=== PATIENT | male | born 1975 | race Caucasian/White ===

== ENCOUNTER 2017-07-31 06:33 | Emergency (ER) | payer MEDICAID, OTHER ==
[~2017-07-31] VITALS: Ht 5787.1 cm; Wt 81.0 kg
[~2017-07-31 06:33] MED LIST: DICL50TA8 PO; HYDR-569 PO; NAPR-1154 PO
[2017-07-31] MEDS ORDERED: KETO10TA2 PO (08:23)
[2017-07-31] MEDS ORDERED: ketorolac trometh inj. 60 MG/2 ML VIAL IM ONE (08:25)
[2017-07-31 09:03] VITALS: BP 138/80
== END 2017-07-31 09:05 | disposition home or self-care (01) ==
LOC: ER 06:34
DX: M25.561 Pain in right knee (principal); Z98.890 Other specified postprocedural states; Z88.2 Allergy status to sulfonamides; Z88.8 Allergy status to other drugs, medicaments and biological substances
CPT/HCPCS: 73564; 96372; 99284; A6449; J1885

== ENCOUNTER 2017-08-04 22:42 | Emergency (ER) | payer MEDICAID ==
[~2017-08-04] VITALS: Ht 175.3 cm; Wt 82.0 kg
[~2017-08-04 22:42] MED LIST changes: +KETO10TA2 PO
[2017-08-04 22:46] VITALS: BP 134/83
[2017-08-05] MEDS ORDERED: ONDA4TAB9 PO (08:31)
[2017-08-05] MEDS ORDERED: HYDR-3965 PO ×2 (08:31→17:26)
[2017-08-05] MEDS ORDERED: DICL50TA8 PO (17:26)
[2017-08-06] MEDS ORDERED: NAPR-56 PO (13:33)
[2017-08-06] MEDS ORDERED: FAMO20TA8 PO (13:33)
== END 2017-08-05 03:49 | disposition left against medical advice (07) ==
LOC: ER 22:43
DX: M25.561 Pain in right knee (principal); Z53.21 Procedure and treatment not carried out due to patient leaving prior to being seen by health care provider

== ENCOUNTER 2017-08-05 06:27 | Inpatient (IN) | payer MEDICAID ==
[~2017-08-05] VITALS: Ht 175.3 cm; Wt 82.0 kg
[2017-08-05] MEDS ORDERED: BUPIVAcaine/PF 2.5 mg/ml (0.25%) 30ml vial IJ ONE (08:05)
[2017-08-05] MEDS ORDERED: ketorolac trometh inj. 60 MG/2 ML VIAL IM ONE (08:20)
[2017-08-05] MEDS ORDERED: ONDA4TAB9 PO (08:31)
[2017-08-05] MEDS ORDERED: HYDR-3965 PO ×2 (08:31→17:26)
[2017-08-05 09:50] LABS: GLUCOSE,SYNOVIAL FLUID 89 MG/DL; TOTAL PROTEIN,SYNOVIAL FLUID 5.1 GM/DL
[2017-08-05 10:16] LABS: APPEARANCE,SYNOVIAL FLUID CLOUDY; COLOR,SYNOVIAL FLUID YELLOW; LYMPHOCYTES,SYNOVIAL FLUID 1 % (0-75); NEUTROPHILS,SYNOVIAL FLUID 88 % (0-25); SYN RBC 390 /CU MM (0); SYN WBC 15300 /CU MM (0-200)
[2017-08-05 10:17] LABS: MONOCYTES,SYNOVIAL FLUID 11 % (0-0); SYNOVIAL FLUID CRYSTALS QT NO CRYSTALS SEEN
[2017-08-05] MEDS ORDERED: vancomycin/NS 1 GM ADD-VANTAGE 250 ML IV ONE (11:30)
[2017-08-05] MEDS ORDERED: piperacillin/tazo 3.375gm/50ml 50 ML IV ONE (11:30)
[2017-08-05 11:39] LABS: BASOPHILS % (AUTO) 0.3 % (0-1); EOSINOPHILS # (AUTO) 0.3 X10'3 (0-0.9); EOSINOPHILS % (AUTO) 2.8 % (0-6); HEMATOCRIT 38.9 % (42.0-52.0); HEMOGLOBIN 13.2 g/dl (14.0-17.9); LYMPHOCYTES # (AUTO) 1.5 X10'3 (1.1-4.8); LYMPHOCYTES % (AUTO) 12.1 % (21-51); MEAN CORPUSCULAR HEMOGLOBIN 29.3 PG (27.0-31.0); MEAN CORPUSCULAR HGB CONC 33.9 % (33.0-36.5); MEAN CORPUSCULAR VOLUME 86.6 FL (78-98); MEAN PLATELET VOLUME 7.7 FL (7.4-10.4); MONOCYTES % (AUTO) 8.6 % (2-12); NEUTROPHILS # (AUTO) 9.2 X10'3 (1.8-7.7); NEUTROPHILS % (AUTO) 76.2 % (42-75); PLATELET COUNT 304 X10'3 (140-440); RED BLOOD COUNT 4.49 X10'6 (4.70-6.10); RED CELL DISTRIBUTION WIDTH 12.9 % (11.5-14.5); WHITE BLOOD COUNT 12.1 X10'3 (4.5-11.0)
[2017-08-05 11:49] LABS: ALANINE AMINOTRANSFERASE 45 U/L (12-78); ALBUMIN 3.5 G/DL (3.4-5.0); ALBUMIN/GLOBULIN RATIO 0.7 (1.1-1.5); ALKALINE PHOSPHATASE 109 IU/L (46-116); ANION GAP 9 (8-16); ASPARTATE AMINO TRANSFERASE 33 U/L (10-37); BILIRUBIN,TOTAL 0.7 MG/DL (0.1-1.0); BLOOD UREA NITROGEN 16 MG/DL (7-18); BUN/CREATININE RATIO 10.8 (5.4-32.0); CALCIUM 9.8 MG/DL (8.5-10.1); CHLORIDE 99 MMOL/L (99-107); CREATININE 1.48 MG/DL (0.60-1.10); GLUCOSE 98 MG/DL (70-104); MAGNESIUM 1.9 MG/DL (1.5-2.4); POTASSIUM 4.3 MMOL/L (3.5-5.1); SODIUM 138 MMOL/L (135-145); TOTAL CARBON DIOXIDE 29.9 MMOL/L (24-32); TOTAL PROTEIN 8.3 G/DL (6.4-8.2); eGFR 52 ML/MIN
[2017-08-05] MEDS ORDERED: magnesium hydroxide 30ml (MOM) UD suspension PO PRN (13:40)
[2017-08-05] MEDS ORDERED: magnesium 2GM in 50ml NS 50 ML IV PRN (13:40)
[2017-08-05] MEDS ORDERED: magnesium 4gm in 100ml NS 100 ML IV PRN (13:40)
[2017-08-05] MEDS ORDERED: potassium Cl 20 mEq SR tablet PO PRN ×2 (13:40)
[2017-08-05] MEDS ORDERED: magnesium Cl slow-release 64mg tablet PO PRN (13:40)
[2017-08-05] MEDS ORDERED: mag hydrox/Alum hydrox/simeth 30ml oral suspension PO PRN (13:40)
[2017-08-05] MEDS ORDERED: bisacodyl 10mg suppository rectal RC PRN (13:40)
[2017-08-05] MEDS ORDERED: potassium Cl 40MEQ/NS 500ml 500 ML IV PRN ×2 (13:40)
[2017-08-05] MEDS ORDERED: acetaminophen 325mg tablet PO PRN (13:40)
[2017-08-05] MEDS ORDERED: ondansetron/PF 4mg/2ml inj IV PRN (13:40)
[2017-08-05] MEDS ORDERED: HYDROcodone/acetaminophen 5mg/325mg tablet PO PRN (13:40)
[2017-08-05 14:47] LABS: C-REACTIVE PROTEIN 16.13 MG/DL (0.0-0.5)
[2017-08-05] MEDS: naproxen 500mg tablet PO SCH (16:40)
[2017-08-05] MEDS: HYDROcodone/acetaminophen 10/325mg tab PO PRN ×2 (16:40→22:08)
[2017-08-05] MEDS ORDERED: DICL50TA8 PO (17:26)
[2017-08-05 19:10] VITALS: BP 124/74
[2017-08-05] MEDS: docusate sod 100mg capsule PO SCH (20:48)
[2017-08-05] MEDS ORDERED: famotidine 20mg tablet PO SCH (21:00)
[2017-08-05 22:00] VITALS: BP 123/79
[2017-08-06] MEDS ORDERED: naproxen 500mg tablet PO PRN (00:50)
[2017-08-06 06:00] VITALS: BP 100/63
[2017-08-06 06:30] LABS: BASOPHILS % (AUTO) 0.5 % (0-1); EOSINOPHILS # (AUTO) 0.5 X10'3 (0-0.9); EOSINOPHILS % (AUTO) 5.8 % (0-6); HEMATOCRIT 36.4 % (42.0-52.0); HEMOGLOBIN 12.4 g/dl (14.0-17.9); LYMPHOCYTES # (AUTO) 1.9 X10'3 (1.1-4.8); LYMPHOCYTES % (AUTO) 20.8 % (21-51); MEAN CORPUSCULAR HEMOGLOBIN 29.5 PG (27.0-31.0); MEAN CORPUSCULAR HGB CONC 33.9 % (33.0-36.5); MEAN PLATELET VOLUME 7.8 FL (7.4-10.4); MONOCYTES # (AUTO) 0.8 X10'3 (0-0.9); MONOCYTES % (AUTO) 9.1 % (2-12); NEUTROPHILS # (AUTO) 5.8 X10'3 (1.8-7.7); NEUTROPHILS % (AUTO) 63.8 % (42-75); PLATELET COUNT 298 X10'3 (140-440); RED BLOOD COUNT 4.19 X10'6 (4.70-6.10); RED CELL DISTRIBUTION WIDTH 12.9 % (11.5-14.5)
[2017-08-06 07:10] LABS: ALANINE AMINOTRANSFERASE 64 U/L (12-78); ALBUMIN 2.9 G/DL (3.4-5.0); ALBUMIN/GLOBULIN RATIO 0.7 (1.1-1.5); ALKALINE PHOSPHATASE 119 IU/L (46-116); ANION GAP 7 (8-16); ASPARTATE AMINO TRANSFERASE 39 U/L (10-37); BILIRUBIN,TOTAL 0.4 MG/DL (0.1-1.0); BLOOD UREA NITROGEN 27 MG/DL (7-18); BUN/CREATININE RATIO 16.7 (5.4-32.0); CALCIUM 8.9 MG/DL (8.5-10.1); CHLORIDE 101 MMOL/L (99-107); CREATININE 1.62 MG/DL (0.60-1.10); GLUCOSE 142 MG/DL (70-104); MAGNESIUM 2.2 MG/DL (1.5-2.4); POTASSIUM 3.9 MMOL/L (3.5-5.1); SODIUM 138 MMOL/L (135-145); TOTAL CARBON DIOXIDE 30.4 MMOL/L (24-32); eGFR 47 ML/MIN
[2017-08-06] MEDS: naproxen 500mg tablet PO SCH (07:29)
[2017-08-06] MEDS ORDERED: enoxaparin 40mg/0.4ml syringe SUBCUT SCH (08:00)
[2017-08-06] MEDS ORDERED: K and/or MAG REPLACEMENT MC SCH (08:00)
[2017-08-06] MEDS: docusate sod 100mg capsule PO SCH (08:00)
[2017-08-06 10:00] VITALS: BP 117/72
[2017-08-06] MEDS ORDERED: FAMO20TA8 PO (13:33)
[2017-08-06] MEDS ORDERED: NAPR-56 PO (13:33)
== END 2017-08-06 14:20 | disposition home or self-care (01) | DRG 342 ==
LOC: ER 06:27 → ED HOLD 13:11 → ORTHO 4S 15:15
PROVIDERS: ADMIT Internal Medicine; ATTEND Internal Medicine
PROC: 0S9C3ZX Drainage of Right Knee Joint, Percutaneous Approach, Diagnostic (ICD-10-PCS; principal; 2017-08-05)
PROC: 0S9C3ZZ Drainage of Right Knee Joint, Percutaneous Approach (ICD-10-PCS; 2017-08-05)
DX: M23.8X1 Other internal derangements of right knee (principal); N28.9 Disorder of kidney and ureter, unspecified; M25.461 Effusion, right knee; M45.9 Ankylosing spondylitis of unspecified sites in spine; M17.11 Unilateral primary osteoarthritis, right knee; Z88.2 Allergy status to sulfonamides; Z88.1 Allergy status to other antibiotic agents; Z79.899 Other long term (current) drug therapy
CPT/HCPCS: 20610; 36415; 73721; 80053; 82945; 83605; 83735; 84145; 84157; 85025; 85651; 86038; 86140; 87040; 87070; 89051; 89060; 96365; 96368; 96372; 97116; 97161; 99285; A6258; J1650; J1885; J2270; J2405; J2543; J3370; J3490

== ENCOUNTER 2018-06-01 15:05 | Emergency (ER) | payer BC, MEDICAID ==
[~2018-06-01] VITALS: Ht 175.3 cm; Wt 77.0 kg
[~2018-06-01 15:05] MED LIST changes: -DICL50TA8 PO; +FAMO20TA8 PO; +HYDR-3965 PO; -HYDR-569 PO; -KETO10TA2 PO; -NAPR-1154 PO; +NAPR-56 PO
[2018-06-01 15:12] VITALS: BP 148/86
[2018-06-01] MEDS ORDERED: methylPREDNISolone sod succ 125mg/2ml vial IM ONE (16:00)
[2018-06-01] MEDS ORDERED: METH4TAB81 PO (16:20)
== END 2018-06-01 16:43 | disposition home or self-care (01) ==
LOC: ER 15:06
DX: M25.462 Effusion, left knee (principal); Z88.2 Allergy status to sulfonamides
CPT/HCPCS: 96372; 99283; J2930

== ENCOUNTER 2022-02-16 11:13 | Emergency (ER) | payer BC, MEDICAID, OTHER ==
[~2022-02-16] VITALS: Ht 175.3 cm; Wt 81.8 kg
[~2022-02-16 11:13] MED LIST changes: +METH4TAB81 PO
[2022-02-16 11:25] VITALS: BP 169/120
[2022-02-16] MEDS ORDERED: HYDR-3965 PO (13:24)
== END 2022-02-16 13:42 | disposition home or self-care (01) ==
LOC: ER 11:16
DX: M79.645 Pain in left finger(s) (principal); Z88.2 Allergy status to sulfonamides; Z91.018 Allergy to other foods
CPT/HCPCS: 29125; 73130; 99283; A6449

== ENCOUNTER 2022-04-15 12:02 | Emergency (ER) | payer BC, OTHER ==
[~2022-04-15] VITALS: Ht 175.3 cm; Wt 84.1 kg
[2022-04-15 12:12] VITALS: BP 146/105
[2022-04-15 14:48] LABS: BASOPHILS # (AUTO) 0.1 X10'3 (0-0.2); BASOPHILS % (AUTO) 0.9 % (0-1); EOSINOPHILS # (AUTO) 0.1 X10'3 (0-0.9); HEMATOCRIT 42.8 % (42.0-52.0); HEMOGLOBIN 14.3 g/dl (14.0-17.9); LYMPHOCYTES % (AUTO) 18.1 % (21-51); MEAN CORPUSCULAR HEMOGLOBIN 28.7 PG (27.0-31.0); MEAN CORPUSCULAR HGB CONC 33.3 g/dL (33.0-36.5); MEAN CORPUSCULAR VOLUME 86.2 FL (78-98); MEAN PLATELET VOLUME 7.3 FL (7.4-10.4); MONOCYTES # (AUTO) 1.2 X10'3 (0-0.9); MONOCYTES % (AUTO) 10.9 % (2-12); NEUTROPHILS # (AUTO) 7.8 X10'3 (1.8-7.7); NEUTROPHILS % (AUTO) 69.1 % (42-75); PLATELET COUNT 284 X10'3 (140-440); RED BLOOD COUNT 4.96 X10'6 (4.70-6.10); RED CELL DISTRIBUTION WIDTH 14.3 % (11.5-14.5); WHITE BLOOD COUNT 11.3 X10'3 (4.5-11.0)
[2022-04-15 15:08] LABS: ALANINE AMINOTRANSFERASE 26 U/L (12-78); ALBUMIN 3.5 G/DL (3.4-5.0); ALBUMIN/GLOBULIN RATIO 0.9 (1.1-1.5); ALKALINE PHOSPHATASE 102 IU/L (46-116); ANION GAP 6 (8-16); ASPARTATE AMINO TRANSFERASE 15 U/L (10-37); BLOOD UREA NITROGEN 14 MG/DL (7-18); BUN/CREATININE RATIO 9.2 (5.4-32.0); CALCIUM 9.1 MG/DL (8.5-10.1); CHLORIDE 100 MMOL/L (99-107); CREATININE 1.52 MG/DL (0.60-1.10); GLUCOSE 102 MG/DL (70-104); POTASSIUM 4.2 MMOL/L (3.5-5.1); SODIUM 137 MMOL/L (135-145); TOTAL CARBON DIOXIDE 30.8 MMOL/L (24-32); TOTAL PROTEIN 7.6 G/DL (6.4-8.2); eGFR 49 ML/MIN
[2022-04-15 15:09] LABS: C-REACTIVE PROTEIN 12.65 MG/DL (0.0-0.5)
[2022-04-15 15:42] LABS: GLUCOSE,SYNOVIAL FLUID 87 MG/DL; TOTAL PROTEIN,SYNOVIAL FLUID 4.4 GM/DL
[2022-04-15 15:46] LABS: APPEARANCE,SYNOVIAL FLUID CLOUDY; COLOR,SYNOVIAL FLUID YELLOW; SYN RBC 0 /CU MM (0); SYN WBC 48000 /CU MM (0-200)
[2022-04-15 15:52] LABS: SYNOVIAL FLUID CRYSTALS QT FEW
[2022-04-15 15:53] LABS: CRYSTAL ID, SYN FLD URIC ACID
[2022-04-15] MEDS ORDERED: colchicine 0.6mg tablet PO ONE (16:15)
[2022-04-15] MEDS ORDERED: COLC0.6T72 PO (16:22)
== END 2022-04-15 16:36 | disposition home or self-care (01) ==
LOC: ER 12:03
DX: M10.9 Gout, unspecified (principal); Z87.81 Personal history of (healed) traumatic fracture; Z91.018 Allergy to other foods; Z88.2 Allergy status to sulfonamides
CPT/HCPCS: 20605; 20610; 36415; 73564; 80053; 82945; 84157; 84550; 85025; 85651; 86140; 87070; 89051; 89060; 99284; A6449

== ENCOUNTER 2022-11-05 07:08 | Emergency (ER) | payer BC, MEDICAID ==
[~2022-11-05] VITALS: Ht 175.3 cm; Wt 81.8 kg
[~2022-11-05 07:08] MED LIST changes: +COLC0.6T72 PO
[2022-11-05 08:03] VITALS: BP 196/133
== END 2022-11-05 09:21 | disposition left against medical advice (07) ==
LOC: ER 07:08
DX: M79.602 Pain in left arm (principal); Z53.21 Procedure and treatment not carried out due to patient leaving prior to being seen by health care provider
CPT/HCPCS: 99281

== ENCOUNTER 2023-02-28 06:05 | Emergency (ER) | payer MEDICAID ==
[~2023-02-28] VITALS: Ht 175.3 cm; Wt 80.0 kg
[2023-02-28 06:13] VITALS: TEMP 98.4
[2023-02-28] MEDS ORDERED: ondansetron/PF 4mg/2ml inj IV ONE (06:20)
[2023-02-28] MEDS ORDERED: morphine 4 MG/ML inj SYRINge IV ONE (06:20)
[2023-02-28] MEDS ORDERED: normal saline 1000ML IV soln IVB ONE (06:20)
[2023-02-28] MEDS: ketorolac trometh. 30mg/ml inj. IV ONE ×2 (06:57→07:01)
[2023-02-28 07:00] VITALS: BP 114/83; PULSE 92; O2SAT 94
[2023-02-28] MEDS ORDERED: dexamethasone sod phosphate 10mg/ml inj IV STA (07:00)
[2023-02-28] MEDS ORDERED: acetaminophen 1,000mg/100ml IV 100 ML IV ONE (07:00)
--- NOTE | 2023-02-28 07:10 | NUR ---
tech copied pt EKG and placed it w/ pt chart in room
[2023-02-28] MEDS ORDERED: morphine 10mg/ml inj. IV ONE (07:35)
[2023-02-28 07:36] LABS: ALANINE AMINOTRANSFERASE 22 U/L (12-78); ALBUMIN 3.5 G/DL (3.4-5.0); ALBUMIN/GLOBULIN RATIO 0.9 (1.1-1.5); ALKALINE PHOSPHATASE 84 IU/L (46-116); ANION GAP 7 (8-16); ASPARTATE AMINO TRANSFERASE 18 U/L (10-37); BILIRUBIN,TOTAL 0.2 MG/DL (0.1-1.0); BLOOD UREA NITROGEN 43 MG/DL (7-18); BUN/CREATININE RATIO 19.1 (10.0-20.0); CALCIUM 9.6 MG/DL (8.5-10.1); CHLORIDE 99 MMOL/L (99-107); CREATININE 2.25 MG/DL (0.60-1.10); GLUCOSE 118 MG/DL (70-104); POTASSIUM 5.5 MMOL/L (3.5-5.1); SODIUM 133 MMOL/L (135-145); TOTAL CARBON DIOXIDE 26.8 MMOL/L (24-32); TOTAL PROTEIN 7.6 G/DL (6.4-8.2); eGFR 31 ML/MIN
[2023-02-28 07:55] VITALS: RESP 18
[2023-02-28] MEDS ORDERED: OXYC-138 PO (08:04)
[2023-02-28] MEDS ORDERED: COLC1TAB2 PO (08:04)
[2023-02-28 08:19] LABS: BASOPHILS # (AUTO) 0.1 X10'3 (0-0.2); BASOPHILS % (AUTO) 0.5 % (0-1); EOSINOPHILS # (AUTO) 0.4 X10'3 (0-0.9); EOSINOPHILS % (AUTO) 3.4 % (0-6); HEMATOCRIT 36.1 % (42.0-52.0); HEMOGLOBIN 11.8 g/dl (14.0-17.9); LYMPHOCYTES # (AUTO) 0.9 X10'3 (1.1-4.8); LYMPHOCYTES % (AUTO) 6.6 % (21-51); MEAN CORPUSCULAR HEMOGLOBIN 28.7 PG (27.0-31.0); MEAN CORPUSCULAR HGB CONC 32.8 g/dL (33.0-36.5); MEAN CORPUSCULAR VOLUME 87.6 FL (78-98); MEAN PLATELET VOLUME 7.6 FL (7.4-10.4); MONOCYTES # (AUTO) 1.1 X10'3 (0-0.9); NEUTROPHILS # (AUTO) 10.8 X10'3 (1.8-7.7); NEUTROPHILS % (AUTO) 81.5 % (42-75); PLATELET COUNT 302 X10'3 (140-440); RED BLOOD COUNT 4.12 X10'6 (4.70-6.10); RED CELL DISTRIBUTION WIDTH 14.3 % (11.5-14.5); WHITE BLOOD COUNT 13.2 X10'3 (4.5-11.0)
[2023-02-28 09:35] LABS: D-DIMER 0.66 MG/L FEU (0-0.50)
== END 2023-02-28 09:25 | disposition home or self-care (01) ==
LOC: ER 06:05
DX: M10.9 Gout, unspecified (principal); N18.9 Chronic kidney disease, unspecified; Z87.81 Personal history of (healed) traumatic fracture; Z88.8 Allergy status to other drugs, medicaments and biological substances; Z91.018 Allergy to other foods; Z88.2 Allergy status to sulfonamides; Z79.1 Long term (current) use of non-steroidal anti-inflammatories (NSAID); Z79.2 Long term (current) use of antibiotics
CPT/HCPCS: 36415; 80053; 84145; 84484; 85025; 85379; 93005; 96374; 96375; 96376; 99284; J0131; J1100; J2270; J2274; J2405; J7030; J1885

== ENCOUNTER 2023-04-01 11:51 | Emergency (ER) | payer MEDICAID ==
[~2023-04-01] VITALS: Ht 175.3 cm; Wt 74.4 kg
[2023-04-01 11:51] VITALS: BP 138/75; PULSE 113; RESP 16; TEMP 98; O2SAT 100
[~2023-04-01 11:51] MED LIST changes: +COLC1TAB2 PO; +OXYC-138 PO
[2023-04-01] MEDS ORDERED: NAPR-56 PO (14:57)
[2023-04-01] MEDS ORDERED: ketorolac trometh. 30mg/ml inj. IM STA (15:05)
[2023-04-01] MEDS ORDERED: ketorolac tromethamine 15mg/ml inj. IM STA (15:05)
[2023-04-01] MEDS ORDERED: HYDROcodone/acetaminophen 5mg/325mg tablet PO STA (15:17)
--- NOTE | 2023-04-01 15:24 | NUR ---
ordered Toradol 30mg IM. Pt ref med states he is unable to take med. Pt states he is not able to take Tylenol. Pt states in the past he was given [place] for pain. RN explained to the Pt that [place] has Tylenol in it. Pt states he can take acetaminophen thats in [place]. RN rexplained that both Tylenol and acetaminophen are the same medication. Pt requested [place] from the MD. New order for [place] 5/325mg was placed. While janey was approving the order Pt left.
== END 2023-04-01 15:30 | disposition home or self-care (01) ==
LOC: ER 11:51
DX: S53.401A Unspecified sprain of right elbow, initial encounter (principal); N18.9 Chronic kidney disease, unspecified; Z91.018 Allergy to other foods; Z88.2 Allergy status to sulfonamides; Z79.899 Other long term (current) drug therapy; X58.XXXA Exposure to other specified factors, initial encounter; Y93.89 Activity, other specified; Y92.89 Other specified places as the place of occurrence of the external cause; Y99.8 Other external cause status
CPT/HCPCS: 73080; 99283